=== PATIENT | male | born 1990 | race Native Hawaiian/Other Pacific Islander ===

== ENCOUNTER 2020-09-06 16:09 | Outpatient (CLI) | payer OTHER | END 2020-09-06 19:08 | disposition home or self-care (01) | LOC: RAD 16:09 | DX: M54.9 Dorsalgia, unspecified (principal); M54.2 Cervicalgia; M62.838 Other muscle spasm ==

== ENCOUNTER 2021-02-15 12:41 | Outpatient (CLI) | payer OTHER | END 2021-02-15 19:24 | disposition home or self-care (01) | LOC: RAD 12:41 | PROVIDERS: ATTEND Family Medicine | DX: M25.531 Pain in right wrist (principal) ==

== ENCOUNTER 2021-07-06 18:03 | Emergency (ER) | payer OTHER ==
[~2021-07-06] VITALS: Ht 170.2 cm; Wt 83.0 kg
[2021-07-06 19:00] VITALS: BP 137/87; TEMP 98.4
== END 2021-07-06 18:55 | disposition home or self-care (01) ==
LOC: ED 18:03
DX: R09.81 Nasal congestion (principal); Z20.822 Contact with and (suspected) exposure to COVID-19
CPT/HCPCS: 87635; 96372; 99283; J1100; U0003

== ENCOUNTER 2021-07-10 16:01 | Outpatient (CLI) | payer OTHER | END 2021-07-10 19:16 | disposition home or self-care (01) | LOC: US 16:01 | PROVIDERS: ATTEND Nurse Practitioner Family | DX: E06.3 Autoimmune thyroiditis (principal) ==

== ENCOUNTER 2022-03-13 15:19 | Emergency (ER) | payer OTHER ==
[~2022-03-13] VITALS: Ht 170.2 cm; Wt 110.2 kg
[2022-03-13 15:30] VITALS: TEMP 97.4
[2022-03-13 18:45] VITALS: BP 147/93
== END 2022-03-13 18:45 | disposition home or self-care (01) ==
LOC: ED 15:19
DX: S46.811A Strain of other muscles, fascia and tendons at shoulder and upper arm level, right arm, initial encounter (principal); X58.XXXA Exposure to other specified factors, initial encounter; Y92.89 Other specified places as the place of occurrence of the external cause
CPT/HCPCS: 96372; 99283; J1885

== ENCOUNTER 2022-08-02 19:38 | Emergency (ER) | payer OTHER ==
[~2022-08-02] VITALS: Ht 170.2 cm; Wt 109.8 kg
[2022-08-02 19:50] VITALS: TEMP 98.4
[2022-08-02 21:39] VITALS: BP 136/79
== END 2022-08-02 21:44 | disposition home or self-care (01) ==
LOC: ED 19:38
PROC: 0HQMXZZ Repair Right Foot Skin, External Approach (ICD-10-PCS; principal; 2022-08-02)
DX: S91.311A Laceration without foreign body, right foot, initial encounter (principal); W26.0XXA Contact with knife, initial encounter; Y93.E8 Activity, other personal hygiene; Y92.89 Other specified places as the place of occurrence of the external cause
CPT/HCPCS: 90471; 90715; 99283

== ENCOUNTER 2022-08-13 19:41 | Emergency (ER) | payer OTHER ==
[~2022-08-13] VITALS: Ht 170.2 cm; Wt 109.8 kg
[2022-08-13 19:52] VITALS: BP 131/73; TEMP 98.4
== END 2022-08-13 20:32 | disposition home or self-care (01) ==
LOC: ED 19:41
DX: Z48.02 Encounter for removal of sutures (principal)